=== PATIENT | female | born 1975 | race Hispanic/Latino ===

== ENCOUNTER 2017-12-22 15:57 | Observation (INO) | payer MEDICARE ==
[~2017-12-22] VITALS: Ht 162.6 cm; Wt 127.0 kg
[~2017-12-22 15:57] MED LIST: CALC500T7 PO; LISI-613 PO; SEVE800T7 PO
[2017-12-22 16:25] LABS: BASOPHILS % (AUTO) 1.1 % (0.0-5.0); EOSINOPHILS % (AUTO) 1.2 % (0.0-8.0); HEMATOCRIT 36.6 % (36-48); LYMPHOCYTES % (AUTO) 26.3 % (21.0-51.0); MEAN CORPUSCULAR HEMOGLOBIN 33.8 pg (27.0-33.0); MEAN CORPUSCULAR HGB CONC 32.6 g/dL (32.0-36.0); MEAN CORPUSCULAR VOLUME 103.8 fL (79-99); MONOCYTES % (AUTO) 17.5 % (3.0-13.0); NEUTROPHILS % (AUTO) 53.9 % (40.0-77.0); NUCLEATED RED BLOOD CELLS 0.1 % (0.0-0.19); PLATELET COUNT (AUTO) 117 K/uL (130-400); RED BLOOD CELL COUNT(AUTO) 3.53 MIL/uL (4.00-5.50); RED CELL DISTRIBUTION WIDTH 20.9 % (11.0-15.5); WHITE BLOOD COUNT (AUTO) 3.7 K/uL (4.8-10.8)
[2017-12-22 16:33] LABS: CREATININE 6.5 mg/dL (0.5-1.5); POTASSIUM 3.7 mmol/L (3.5-5.1)
[2017-12-22 16:38] LABS: ALBUMIN 3.2 g/dL (3.5-5.0); BILIRUBIN,DIRECT 1.5 mg/dL (0.0-0.3); BILIRUBIN,TOTAL 2.3 mg/dL (0.2-1.0); TOTAL PROTEIN, SERUM 6.7 g/dL (6.0-8.3)
[2017-12-22] MEDS ORDERED: DICYCLOMINE HCL 10 MG/ML 2ML AMP IM ONE (16:38)
[2017-12-22] MEDS ORDERED: ONDANSETRON HCL 4 MG/2 ML VIAL ONE (16:38)
[2017-12-22] MEDS ORDERED: SODIUM CHLORIDE 0.9% 250 ML IV ONE (16:39)
[2017-12-22] MEDS ORDERED: DILTIAZEM HCL 125 MG/25 ML VIAL IV ONE (19:04)
[2017-12-22] MEDS ORDERED: DILTIAZEM 125MG+100 ML NS 125 ML IV SCH (21:00)
[2017-12-22 21:40] VITALS: BP 114/67
[2017-12-22 23:52] VITALS: BP 110/70
[2017-12-23] MEDS ORDERED: ACETAMINOPHEN-CODEINE 300/30MG TAB ONE (01:49)
[2017-12-23] MEDS ORDERED: DILTIAZEM HCL 125 MG/25 ML VIAL IV ONE (01:58)
[2017-12-23] MEDS: ACETAMINOPHEN-CODEINE 300/30MG TAB PO PRN ×2 (02:21→09:33)
[2017-12-23 03:50] VITALS: BP 129/90
[2017-12-23 07:32] VITALS: BP 101/68
[2017-12-23] MEDS ORDERED: METOPROLOL TARTRATE 25 MG TAB PO SCH (09:00)
[2017-12-23] MEDS ORDERED: LISINOPRIL 20 MG TABLET PO SCH (09:00)
[2017-12-23] MEDS ORDERED: CALCIUM CARBON 500MG CHEW TAB PO SCH (09:00)
[2017-12-23] MEDS ORDERED: APIXABAN 5 MG TABLET PO SCH (09:00)
[2017-12-23 11:44] VITALS: BP 99/66
[2017-12-23] MEDS: SEVELAMER HCL 800 MG TABLET PO SCH ×2 (12:00→16:53)
[2017-12-23] MEDS ORDERED: APIX5TAB PO (14:48)
[2017-12-23] MEDS ORDERED: METO25TA6 PO ×2 (14:49→15:02)
[2017-12-23] MEDS ORDERED: AMOX-426 PO (15:02)
[2017-12-23 16:33] VITALS: BP 91/76
== END 2017-12-23 17:20 | disposition home or self-care (01) ==
LOC: EDH 15:57 → EDHIP 19:31 → INTOOBSV 19:31 → 2AH 20:29
PROVIDERS: ADMIT Family Medicine; ATTEND Family Medicine
DX: R10.819 Abdominal tenderness, unspecified site (principal); N18.6 End stage renal disease; I12.0 Hypertensive chronic kidney disease with stage 5 chronic kidney disease or end stage renal disease; E78.5 Hyperlipidemia, unspecified; I48.2 Chronic atrial fibrillation; I48.92 Unspecified atrial flutter; F41.9 Anxiety disorder, unspecified; Z99.2 Dependence on renal dialysis; Z86.711 Personal history of pulmonary embolism; Z88.1 Allergy status to other antibiotic agents; Z79.899 Other long term (current) drug therapy
CPT/HCPCS: 36415; 74176; 76705; 76830; 76856; 80048; 80076; 82550; 83690; 83880; 84484; 84703; 85025; 93005; 96365; 99291; G0378 ×22; J0500; J2405; J3490 ×2; J7030; 90935

== ENCOUNTER 2018-02-02 07:46 | Inpatient (IN) | payer MEDICARE ==
[2018-02-02] VITALS (15 sets, daily range): BP systolic 89–108; BP diastolic 49–80
[~2018-02-02] VITALS: Ht 162.6 cm; Wt 74.0 kg
[~2018-02-02 07:46] MED LIST changes: +AMOX-426 PO; +APIX5TAB PO; +METO25TA6 PO
[2018-02-02 08:51] LABS: BASOPHILS % (AUTO) 1.1 % (0.0-5.0); EOSINOPHILS % (AUTO) 1.1 % (0.0-8.0); HEMATOCRIT 34.7 % (36-48); MEAN CORPUSCULAR HEMOGLOBIN 33.8 pg (27.0-33.0); MEAN CORPUSCULAR VOLUME 102.4 fL (79-99); MONOCYTES % (AUTO) 7.5 % (3.0-13.0); NEUTROPHILS % (AUTO) 62.3 % (40.0-77.0); NUCLEATED RED BLOOD CELLS 0.5 % (0.0-0.19); PLATELET COUNT (AUTO) 115 K/uL (130-400); RED BLOOD CELL COUNT(AUTO) 3.39 MIL/uL (4.00-5.50); RED CELL DISTRIBUTION WIDTH 19.2 % (11.0-15.5); WHITE BLOOD COUNT (AUTO) 5.7 K/uL (4.8-10.8)
[2018-02-02 09:00] LABS: INR 1.13 (0.85-1.15); PARTIAL THROMBOPLASTIN TIME 26.1 SEC (26.3-35.5); PROTHROMBIN TIME 11.8 SEC (9.6-11.6)
[2018-02-02 09:04] LABS: CREATININE 5.9 mg/dL (0.5-1.5); POTASSIUM 3.8 mmol/L (3.5-5.1)
[2018-02-02 09:06] LABS: ALBUMIN 3.4 g/dL (3.5-5.0); BILIRUBIN,TOTAL 2.4 mg/dL (0.2-1.0); TOTAL PROTEIN, SERUM 7.3 g/dL (6.0-8.3)
[2018-02-02] MEDS ORDERED: DIAZEPAM 5 MG TABLET ONE (09:42)
[2018-02-02] MEDS ORDERED: METOPROLOL TARTRATE 1 MG/ML 5ML VIAL IV ONE ×2 (09:47→10:18)
[2018-02-02] MEDS ORDERED: METOPROLOL TARTRATE 50 MG TAB ONE (11:43)
[2018-02-02] MEDS ORDERED: LORA1TAB3 PO (16:30)
[2018-02-02] MEDS ORDERED: ESMOLOL HCL 2500 MG/NACL 250 ML IV PRN (20:15)
[2018-02-02] MEDS: APIXABAN 5 MG TABLET PO SCH (21:00)
[2018-02-02] MEDS ORDERED: MORPHINE SULFATE 2 MG/ML 1ML SYG IVP PRN (22:00)
[2018-02-02] MEDS ORDERED: METOCLOPRAMIDE 10 MG/2 ML VIAL IVP PRN (22:00)
[2018-02-02] MEDS ORDERED: ONDANSETRON HCL MDV 20ML 2 MG/ML VIAL ONE (22:05)
[2018-02-02 23:18] LABS: HEMATOCRIT 37.1 % (36-48); MEAN CORPUSCULAR HEMOGLOBIN 34.1 pg (27.0-33.0); MEAN CORPUSCULAR HGB CONC 33.1 g/dL (32.0-36.0); NUCLEATED RED BLOOD CELLS 0.9 % (0.0-0.19); PLATELET COUNT (AUTO) 160 K/uL (130-400); RED CELL DISTRIBUTION WIDTH 18.6 % (11.0-15.5); WHITE BLOOD COUNT (AUTO) 8.4 K/uL (4.8-10.8)
[2018-02-02] MEDS ORDERED: ALPRAZOLAM 0.5 MG TABLET ONE (23:29)
[2018-02-02 23:34] LABS: EOSINOPHILS % (MANUAL) 1 % (1-6); LYMPHOCYTES % (MANUAL) 27 % (22-44); MAN.DIFF COMMENT-IMPRESSION MANUAL DIFFERENTIAL; MONOCYTES % (MANUAL) 7 % (2-9); SEGMENTED NEUTROPHILS % 65 % (40-70)
[2018-02-02 23:36] LABS: B-TYPE NATRIURETIC PEPTIDE 651 pg/mL (0-100)
[2018-02-02 23:39] LABS: CREATINE KINASE MB 0.6 ng/mL (0.5-3.6); TROPONIN I 0.06 ng/mL (0.00-0.06)
[2018-02-03] VITALS (30 sets, daily range): BP systolic 73–138; BP diastolic 33–81
[2018-02-03 02:12] LABS: HEMATOCRIT 37.6 % (36-48); MEAN CORPUSCULAR HGB CONC 32.8 g/dL (32.0-36.0); MEAN CORPUSCULAR VOLUME 103.6 fL (79-99); NUCLEATED RED BLOOD CELLS 0.8 % (0.0-0.19); PLATELET COUNT (AUTO) 152 K/uL (130-400); RED BLOOD CELL COUNT(AUTO) 3.63 MIL/uL (4.00-5.50); RED CELL DISTRIBUTION WIDTH 19.2 % (11.0-15.5); WHITE BLOOD COUNT (AUTO) 8.5 K/uL (4.8-10.8)
[2018-02-03] MEDS ORDERED: ESMOLOL HCL 2500 MG/NACL 250 ML IV ONE (02:30)
[2018-02-03 02:31] LABS: CREATINE KINASE MB 0.6 ng/mL (0.5-3.6); CREATININE 6.5 mg/dL (0.5-1.5); POTASSIUM 5.2 mmol/L (3.5-5.1); TROPONIN I 0.05 ng/mL (0.00-0.06)
[2018-02-03 02:37] LABS: BAND NEUTROPHILS % (MANUAL) 2 % (0-2); EOSINOPHILS % (MANUAL) 1 % (1-6); LYMPHOCYTES % (MANUAL) 26 % (22-44); MAN.DIFF COMMENT-IMPRESSION MANUAL DIFFERENTIAL; MONOCYTES % (MANUAL) 5 % (2-9); SEGMENTED NEUTROPHILS % 66 % (40-70)
[2018-02-03 02:38] LABS: PLATELET MORPHOLOGY COMMENT ADEQUATE
[2018-02-03] MEDS ORDERED: LORAZEPAM 1 MG TABLET ONE ×2 (03:32→08:12)
[2018-02-03] MEDS ORDERED: LORAZEPAM 1 MG TABLET PO ONE (04:00)
[2018-02-03] MEDS: MORPHINE SULFATE 2 MG/ML 1ML SYG IVP PRN ×3 (06:55→07:25)
[2018-02-03] MEDS ORDERED: ACETAMINOPHEN 325 MG TAB ONE (08:12)
[2018-02-03] MEDS: APIXABAN 5 MG TABLET PO SCH ×2 (09:00→21:33)
[2018-02-03] MEDS ORDERED: AMIODARONE HCL 900 MG in DEXTROSE 5%-WATER 500 ML IV SCH (09:15)
[2018-02-03] MEDS ORDERED: PHARMACY COMMUNICATION MISC SCH (09:15)
[2018-02-03] MEDS ORDERED: AMIODARONE HCL 150 MG in DEXTROSE 5%-WATER 100 ML IV SCH (09:15)
[2018-02-03] MEDS ORDERED: SODIUM CHLORIDE 0.9% 10 ML VIAL IVP PRN (15:45)
[2018-02-03] MEDS ORDERED: SODIUM CHLORIDE 0.9% 1000ML 1,000 ML IV ONE (17:03)
[2018-02-03] MEDS: LORAZEPAM 1 MG TABLET PO PRN ×2 (17:10→22:54)
[2018-02-03] MEDS: NOREPINEPHRINE 4MG/NS 250ML 250 ML IV PRN ×2 (18:27→23:57)
[2018-02-03] MEDS ORDERED: LORAZEPAM 1 MG TABLET PO STA (22:47)
[2018-02-04] VITALS (24 sets, daily range): BP systolic 91–143; BP diastolic 32–112
[2018-02-04] MEDS: ONDANSETRON HCL MDV 20ML 2 MG/ML VIAL IVP PRN (02:59)
[2018-02-04] MEDS: MORPHINE SULFATE 2 MG/ML 1ML SYG IVP PRN (02:59)
[2018-02-04 04:00] LABS: HEMATOCRIT 40.1 % (36-48); MEAN CORPUSCULAR HEMOGLOBIN 33.8 pg (27.0-33.0); MEAN CORPUSCULAR HGB CONC 32.4 g/dL (32.0-36.0); MEAN CORPUSCULAR VOLUME 104.3 fL (79-99); NUCLEATED RED BLOOD CELLS 1.8 % (0.0-0.19); PLATELET COUNT (AUTO) 173 K/uL (130-400); RED BLOOD CELL COUNT(AUTO) 3.84 MIL/uL (4.00-5.50); RED CELL DISTRIBUTION WIDTH 19.6 % (11.0-15.5); WHITE BLOOD COUNT (AUTO) 12.2 K/uL (4.8-10.8)
[2018-02-04 04:12] LABS: CREATININE 7.6 mg/dL (0.5-1.5); POTASSIUM 5.7 mmol/L (3.5-5.1)
[2018-02-04 04:26] LABS: INR 1.7 (0.85-1.15); PARTIAL THROMBOPLASTIN TIME 30.9 SEC (26.3-35.5); PROTHROMBIN TIME 17.7 SEC (9.6-11.6)
[2018-02-04 05:10] LABS: BAND NEUTROPHILS % (MANUAL) 8 % (0-2); BASOPHILS % (MANUAL) 2 % (0-2); LYMPHOCYTES % (MANUAL) 19 % (22-44); MAN.DIFF COMMENT-IMPRESSION MANUAL DIFFERENTIAL; MONOCYTES % (MANUAL) 1 % (2-9); PLATELET MORPHOLOGY COMMENT ADEQUATE; SEGMENTED NEUTROPHILS % 70 % (40-70)
[2018-02-04] MEDS: NOREPINEPHRINE 4MG/NS 250ML 250 ML IV PRN ×2 (06:46→19:51)
[2018-02-04] MEDS: APIXABAN 5 MG TABLET PO SCH ×2 (09:00→20:33)
[2018-02-04] MEDS ORDERED: LIDOCAINE HCL 1% MDV 50ML VIAL ONE (10:07)
[2018-02-04] MEDS ORDERED: MIDODRINE HCL 5 MG TABLET ONE (11:08)
[2018-02-04] MEDS: AMIODARONE HCL 200 MG TABLET PO SCH ×2 (11:16→20:27)
[2018-02-04] MEDS: MIDODRINE HCL 5 MG TABLET PO SCH ×2 (11:18→20:27)
[2018-02-04] MEDS: LORAZEPAM 1 MG TABLET PO PRN (12:29)
[2018-02-04] MEDS ORDERED: SODIUM CHLORIDE 0.9% 1000ML 1,000 ML IV SCH (14:45)
[2018-02-04] MEDS ORDERED: SODIUM CHLORIDE 0.9% 1000ML 1,000 ML IV PRN (18:30)
[2018-02-04] MEDS ORDERED: PHARMACY COMMUNICATION MISC SCH (18:30)
[2018-02-05] VITALS (12 sets, daily range): BP systolic 87–131; BP diastolic 41–78
[2018-02-05] MEDS: LORAZEPAM 1 MG TABLET PO PRN ×2 (00:32→21:38)
[2018-02-05] MEDS: ONDANSETRON HCL MDV 20ML 2 MG/ML VIAL IVP PRN (02:59)
[2018-02-05] MEDS: MORPHINE SULFATE 2 MG/ML 1ML SYG IVP PRN ×4 (02:59→21:39)
[2018-02-05 03:57] LABS: HEMATOCRIT 35.3 % (36-48); MEAN CORPUSCULAR HEMOGLOBIN 35.4 pg (27.0-33.0); MEAN CORPUSCULAR HGB CONC 34.2 g/dL (32.0-36.0); MEAN CORPUSCULAR VOLUME 103.7 fL (79-99); NUCLEATED RED BLOOD CELLS 3.3 % (0.0-0.19); PLATELET COUNT (AUTO) 138 K/uL (130-400); RED BLOOD CELL COUNT(AUTO) 3.41 MIL/uL (4.00-5.50); RED CELL DISTRIBUTION WIDTH 19.4 % (11.0-15.5); WHITE BLOOD COUNT (AUTO) 7.7 K/uL (4.8-10.8)
[2018-02-05 04:04] LABS: CREATININE 6.4 mg/dL (0.5-1.5); POTASSIUM 4.7 mmol/L (3.5-5.1)
[2018-02-05 04:45] LABS: BAND NEUTROPHILS % (MANUAL) 4 % (0-2); LYMPHOCYTES % (MANUAL) 20 % (22-44); MAN.DIFF COMMENT-IMPRESSION MANUAL DIFFERENTIAL; MONOCYTES % (MANUAL) 4 % (2-9); PLATELET MORPHOLOGY COMMENT ADEQUATE; SEGMENTED NEUTROPHILS % 72 % (40-70)
[2018-02-05] MEDS: MIDODRINE HCL 5 MG TABLET PO SCH ×3 (04:45→21:38)
[2018-02-05] MEDS: HEPARIN SODIUM 5000UNIT/ML 1ML VIAL IJ PRN (05:41)
[2018-02-05] MEDS: AMIODARONE HCL 200 MG TABLET PO SCH ×2 (09:57→21:38)
[2018-02-06] VITALS (11 sets, daily range): BP systolic 83–129; BP diastolic 61–95
[2018-02-06] MEDS: ACETAMINOPHEN 325 MG TAB PO PRN (01:24)
[2018-02-06] MEDS: MIDODRINE HCL 5 MG TABLET PO SCH ×3 (04:05→20:07)
[2018-02-06 04:06] LABS: HEMATOCRIT 33.4 % (36-48); MEAN CORPUSCULAR HEMOGLOBIN 34.1 pg (27.0-33.0); MEAN CORPUSCULAR HGB CONC 32.6 g/dL (32.0-36.0); MEAN CORPUSCULAR VOLUME 104.5 fL (79-99); NUCLEATED RED BLOOD CELLS 2.3 % (0.0-0.19); PLATELET COUNT (AUTO) 136 K/uL (130-400); RED CELL DISTRIBUTION WIDTH 19.9 % (11.0-15.5); WHITE BLOOD COUNT (AUTO) 6.2 K/uL (4.8-10.8)
[2018-02-06] MEDS: MORPHINE SULFATE 2 MG/ML 1ML SYG IVP PRN ×3 (04:09→23:32)
[2018-02-06 04:10] LABS: CREATININE 7.5 mg/dL (0.5-1.5); POTASSIUM 4.6 mmol/L (3.5-5.1)
[2018-02-06 04:20] LABS: BASOPHILS % (MANUAL) 1 % (0-2); LYMPHOCYTES % (MANUAL) 28 % (22-44); MONOCYTES % (MANUAL) 13 % (2-9); SEGMENTED NEUTROPHILS % 58 % (40-70)
[2018-02-06 04:21] LABS: MAN.DIFF COMMENT-IMPRESSION MANUAL DIFFERENTIAL; PLATELET MORPHOLOGY COMMENT SLIGHTLY DECREASED
[2018-02-06 09:03] LABS: INR 1.36 (0.85-1.15); PARTIAL THROMBOPLASTIN TIME 28.2 SEC (26.3-35.5); PROTHROMBIN TIME 14.2 SEC (9.6-11.6)
[2018-02-06] MEDS ORDERED: LIDOCAINE HCL 1% MDV 50ML VIAL ONE (11:22)
[2018-02-06] MEDS ORDERED: ALTEPLASE 2 MG/2 ML IVCATH ONE (11:23)
[2018-02-06] MEDS ORDERED: ISOVUE-300 100 ML VIAL IV ONE (11:46)
[2018-02-06] MEDS ORDERED: DiphenhydrAMINE HCL 50 MG/ML VIAL ONE (11:58)
[2018-02-06] MEDS: AMIODARONE HCL 200 MG TABLET PO SCH ×2 (13:17→23:32)
[2018-02-06] MEDS ORDERED: APIXABAN 5 MG TABLET PO ONE (23:25)
[2018-02-06] MEDS: HEPARIN SODIUM 5000UNIT/ML 1ML VIAL IJ PRN (23:31)
[2018-02-06] MEDS: LORAZEPAM 1 MG TABLET PO PRN (23:32)
[2018-02-06] MEDS ORDERED: MIDAZOLAM HCL 1 MG/ML 2ML VIAL IVP SCH (23:45)
[2018-02-07 03:48] VITALS: BP 109/65
[2018-02-07] MEDS: MIDODRINE HCL 5 MG TABLET PO SCH ×3 (05:23→21:07)
[2018-02-07 05:37] LABS: HEMATOCRIT 34.5 % (36-48); MEAN CORPUSCULAR HEMOGLOBIN 35.5 pg (27.0-33.0); MEAN CORPUSCULAR HGB CONC 33.9 g/dL (32.0-36.0); MEAN CORPUSCULAR VOLUME 104.6 fL (79-99); NUCLEATED RED BLOOD CELLS 2.2 % (0.0-0.19); PLATELET COUNT (AUTO) 144 K/uL (130-400); RED CELL DISTRIBUTION WIDTH 19.6 % (11.0-15.5); WHITE BLOOD COUNT (AUTO) 6.3 K/uL (4.8-10.8)
[2018-02-07 05:45] LABS: CREATININE 6.5 mg/dL (0.5-1.5); POTASSIUM 4.5 mmol/L (3.5-5.1)
[2018-02-07] MEDS ORDERED: FENTANYL CITRATE PF 50 MCG/1 ML 2ML VIAL IVP ONE (07:30)
[2018-02-07] MEDS ORDERED: BENZOCAINE 20% 57 GM SPRAY TP SCH (07:30)
[2018-02-07 08:05] LABS: EOSINOPHILS % (MANUAL) 3 % (1-6); LYMPHOCYTES % (MANUAL) 31 % (22-44); MONOCYTES % (MANUAL) 5 % (2-9); MYELOCYTES % 1 % (0-0); SEGMENTED NEUTROPHILS % 60 % (40-70)
[2018-02-07 08:07] LABS: MAN.DIFF COMMENT-IMPRESSION MANUAL DIFFERENTIAL
[2018-02-07 08:08] LABS: PLATELET MORPHOLOGY COMMENT ADEQUATE
[2018-02-07] MEDS ORDERED: NOREPINEPHRINE 4MG/NS 250ML 250 ML IV SCH (10:15)
[2018-02-07] MEDS ORDERED: NOREPINEPHRINE BITARTRATE 1 MG/1 ML ML IV ONE (10:16)
[2018-02-07] MEDS ORDERED: SODIUM CHLORIDE 0.9% 250 ML IV ONE (10:16)
[2018-02-07] MEDS: MIDAZOLAM HCL 1 MG/ML 2ML VIAL IVP SCH ×4 (10:30→10:45)
[2018-02-07] MEDS ORDERED: FLUMAZENIL 0.1MG/1ML 5ML VIAL IV SCH (11:15)
[2018-02-07] MEDS: APIXABAN 5 MG TABLET PO SCH ×2 (13:58→21:07)
[2018-02-07] MEDS: AMIODARONE HCL 200 MG TABLET PO SCH ×2 (13:59→21:07)
[2018-02-07 16:20] VITALS: BP 140/93
[2018-02-07] MEDS: LORAZEPAM 1 MG TABLET PO PRN (19:13)
[2018-02-07] MEDS: MORPHINE SULFATE 2 MG/ML 1ML SYG IVP PRN (19:13)
[2018-02-07 19:49] VITALS: BP 113/57
[2018-02-07 23:26] VITALS: BP 91/51
[2018-02-08] MEDS: MORPHINE SULFATE 2 MG/ML 1ML SYG IVP PRN ×3 (02:22→23:28)
[2018-02-08 03:42] VITALS: BP 106/66
[2018-02-08 04:27] LABS: HEMATOCRIT 37.8 % (36-48); MEAN CORPUSCULAR HEMOGLOBIN 34.6 pg (27.0-33.0); MEAN CORPUSCULAR HGB CONC 32.3 g/dL (32.0-36.0); MEAN CORPUSCULAR VOLUME 107.2 fL (79-99); NUCLEATED RED BLOOD CELLS 1.4 % (0.0-0.19); PLATELET COUNT (AUTO) 133 K/uL (130-400); RED BLOOD CELL COUNT(AUTO) 3.52 MIL/uL (4.00-5.50); RED CELL DISTRIBUTION WIDTH 20.9 % (11.0-15.5); WHITE BLOOD COUNT (AUTO) 6.7 K/uL (4.8-10.8)
[2018-02-08 04:49] LABS: CREATININE 7.7 mg/dL (0.5-1.5)
[2018-02-08] MEDS: MIDODRINE HCL 5 MG TABLET PO SCH ×3 (05:08→20:23)
[2018-02-08] MEDS: MIDAZOLAM HCL 1 MG/ML 2ML VIAL IVP SCH (07:36)
[2018-02-08 07:41] VITALS: BP 110/66
[2018-02-08] MEDS: ONDANSETRON HCL MDV 20ML 2 MG/ML VIAL IVP PRN (08:59)
[2018-02-08] MEDS: AMIODARONE HCL 200 MG TABLET PO SCH ×2 (09:38→20:22)
[2018-02-08] MEDS: APIXABAN 5 MG TABLET PO SCH ×2 (09:39→20:23)
[2018-02-08 11:20] VITALS: BP 134/88
[2018-02-08 16:23] VITALS: BP 124/63
[2018-02-08] MEDS: ACETAMINOPHEN 325 MG TAB PO PRN (16:30)
[2018-02-08] MEDS: LORAZEPAM 1 MG TABLET PO PRN (17:53)
[2018-02-08 19:00] VITALS: BP 154/101
[2018-02-09] VITALS: BP 107/68
[2018-02-09] MEDS: LORAZEPAM 1 MG TABLET PO PRN (03:40)
[2018-02-09 04:00] VITALS: BP 117/69
[2018-02-09 04:31] LABS: HEMATOCRIT 37.2 % (36-48); MEAN CORPUSCULAR HEMOGLOBIN 34.7 pg (27.0-33.0); MEAN CORPUSCULAR VOLUME 105.2 fL (79-99); NUCLEATED RED BLOOD CELLS 1.5 % (0.0-0.19); PLATELET COUNT (AUTO) 130 K/uL (130-400); RED BLOOD CELL COUNT(AUTO) 3.54 MIL/uL (4.00-5.50); RED CELL DISTRIBUTION WIDTH 20.9 % (11.0-15.5); WHITE BLOOD COUNT (AUTO) 5.5 K/uL (4.8-10.8)
[2018-02-09 04:46] LABS: CREATININE 6.3 mg/dL (0.5-1.5); POTASSIUM 4.7 mmol/L (3.5-5.1)
[2018-02-09] MEDS: MIDODRINE HCL 5 MG TABLET PO SCH ×2 (05:27→13:28)
[2018-02-09] MEDS: MORPHINE SULFATE 2 MG/ML 1ML SYG IVP PRN (06:23)
[2018-02-09 07:56] VITALS: BP 151/96
[2018-02-09] MEDS: AMIODARONE HCL 200 MG TABLET PO SCH (09:15)
[2018-02-09] MEDS: APIXABAN 5 MG TABLET PO SCH (09:15)
[2018-02-09] MEDS ORDERED: POLYETHYLENE GLYCOL 3350 17 GM POWD.PACK PO SCH (11:00)
[2018-02-09 11:22] VITALS: BP 148/59
[2018-02-09] MEDS: ACETAMINOPHEN 325 MG TAB PO PRN (14:17)
[2018-02-09] MEDS ORDERED: AMIO200T44 PO (14:20)
[2018-02-09 16:26] VITALS: BP 134/75
[2018-02-09] MEDS ORDERED: AMIODARONE HCL 200 MG TABLET PO SCH (21:00)
== END 2018-02-09 18:41 | disposition home or self-care (01) | DRG 314 ==
LOC: EDH 07:46 → EDHIP 07:47 → UNDOADMOB 07:47 → EDHIP 10:54 → OBSVTOIN 10:54 → 2DH 15:58 → 2BH 20:05 → 2CH 02-03 19:54 → 2BH 02-03 20:55 → 2AH 02-05 13:39 → 2BH 02-07 07:10 → 2AH 02-07 16:05
PROVIDERS: ADMIT Family Medicine; ATTEND Family Medicine
PROC: 5A1D70Z Performance of Urinary Filtration, Intermittent, Less than 6 Hours Per Day (ICD-10-PCS; principal; 2018-02-04)
PROC: 05HM33Z Insertion of Infusion Device into Right Internal Jugular Vein, Percutaneous Approach (ICD-10-PCS; 2018-02-04)
PROC: B5131ZA Fluoroscopy of Right Jugular Veins using Low Osmolar Contrast, Guidance (ICD-10-PCS; 2018-02-04)
PROC: B51W1ZZ Fluoroscopy of Dialysis Shunt/Fistula using Low Osmolar Contrast (ICD-10-PCS; 2018-02-06)
PROC: 5A1D70Z Performance of Urinary Filtration, Intermittent, Less than 6 Hours Per Day (ICD-10-PCS; 2018-02-08)
PROC: 5A2204Z Restoration of Cardiac Rhythm, Single (ICD-10-PCS; 2018-02-08)
DX: T82.818A Embolism due to vascular prosthetic devices, implants and grafts, initial encounter (principal); A41.9 Sepsis, unspecified organism; E11.21 Type 2 diabetes mellitus with diabetic nephropathy; M32.9 Systemic lupus erythematosus, unspecified; E11.22 Type 2 diabetes mellitus with diabetic chronic kidney disease; N18.6 End stage renal disease; I12.0 Hypertensive chronic kidney disease with stage 5 chronic kidney disease or end stage renal disease; E66.01 Morbid (severe) obesity due to excess calories; I48.91 Unspecified atrial fibrillation; E87.5 Hyperkalemia; I08.1 Rheumatic disorders of both mitral and tricuspid valves; D63.1 Anemia in chronic kidney disease; Y83.2 Surgical operation with anastomosis, bypass or graft as the cause of abnormal reaction of the patient, or of later complication, without mention of misadventure at the time of the procedure; Z53.20 Procedure and treatment not carried out because of patient's decision for unspecified reasons; Y84.1 Kidney dialysis as the cause of abnormal reaction of the patient, or of later complication, without mention of misadventure at the time of the procedure; Z83.3 Family history of diabetes mellitus; Z82.49 Family history of ischemic heart disease and other diseases of the circulatory system; Z79.01 Long term (current) use of anticoagulants; Z91.14 Patient's other noncompliance with medication regimen; Z99.2 Dependence on renal dialysis; Z88.1 Allergy status to other antibiotic agents; Z88.8 Allergy status to other drugs, medicaments and biological substances; Z79.4 Long term (current) use of insulin; Z68.28 Body mass index [BMI] 28.0-28.9, adult
CPT/HCPCS: 36415; 36556; 36902; 71045; 77001; 80048; 80053; 82550; 82553; 83874; 83880; 84484; 85025; 85027; 85610; 85730; 86850; 86900; 86901; 90935; 92960; 93005; 93306; 93312; 99291; C1752; C1769; C1894; J0282; J1200; J1644; J2250; J2997; J3010; J3490; J7030; J7060; Q9967

== ENCOUNTER 2018-02-20 09:19 | Inpatient (IN) | payer MEDICARE ==
[~2018-02-20] VITALS: Ht 162.6 cm; Wt 114.8 kg
[~2018-02-20 09:19] MED LIST changes: +AMIO200T44 PO; -AMOX-426 PO; -CALC500T7 PO; -LISI-613 PO; +LORA1TAB3 PO
[2018-02-20 10:02] LABS: BASOPHILS % (AUTO) 1.2 % (0.0-5.0); EOSINOPHILS % (AUTO) 0.9 % (0.0-8.0); HEMATOCRIT 36.1 % (36-48); LYMPHOCYTES % (AUTO) 31.9 % (21.0-51.0); MEAN CORPUSCULAR HEMOGLOBIN 33.4 pg (27.0-33.0); MEAN CORPUSCULAR HGB CONC 32.8 g/dL (32.0-36.0); MEAN CORPUSCULAR VOLUME 101.9 fL (79-99); MONOCYTES % (AUTO) 16.4 % (3.0-13.0); NEUTROPHILS % (AUTO) 49.6 % (40.0-77.0); NUCLEATED RED BLOOD CELLS 0.2 % (0.0-0.19); PLATELET COUNT (AUTO) 192 K/uL (130-400); RED BLOOD CELL COUNT(AUTO) 3.54 MIL/uL (4.00-5.50); RED CELL DISTRIBUTION WIDTH 17.9 % (11.0-15.5)
[2018-02-20 10:19] LABS: INR 1.21 (0.85-1.15); PARTIAL THROMBOPLASTIN TIME 24.7 SEC (26.3-35.5); PROTHROMBIN TIME 12.7 SEC (9.6-11.6)
[2018-02-20 10:41] LABS: CREATININE 7.6 mg/dL (0.5-1.5); POTASSIUM 4.4 mmol/L (3.5-5.1)
[2018-02-20] MEDS ORDERED: LORAZEPAM 1 MG TABLET ONE (12:03)
[2018-02-20 14:16] VITALS: BP 115/77
[2018-02-20] MEDS ORDERED: IPRATROPIUM/ALBUTEROL SULFATE 3 ML SOLUTION IH PRN (14:30)
[2018-02-20] MEDS ORDERED: NITROGLYCERIN 0.4 MG SL TAB SL PRN (14:30)
[2018-02-20] MEDS ORDERED: ZOLPIDEM TARTRATE 5 MG TAB PO PRN (14:30)
[2018-02-20] MEDS ORDERED: GLUCAGON 1MG KIT 1 MG ML IM PRN (14:30)
[2018-02-20] MEDS ORDERED: ACETAMINOPHEN 325 MG TAB PO PRN ×2 (14:30)
[2018-02-20] MEDS ORDERED: POTASSIUM CHLORIDE 20MEQ/100ML 100 ML IV PRN (14:30)
[2018-02-20] MEDS ORDERED: DIPHENHYDRAMINE HCL 25 MG CAPSULE PO PRN (14:30)
[2018-02-20] MEDS ORDERED: ONDANSETRON HCL 4 MG/2 ML VIAL IVP PRN (14:30)
[2018-02-20] MEDS ORDERED: DEXTROSE 50%-WATER 50 ML DISP.SYRIN IV PRN (14:30)
[2018-02-20] MEDS ORDERED: POTASSIUM CHLORIDE 20 MEQ ERTAB PO PRN (14:30)
[2018-02-20] MEDS ORDERED: MAG HYDROX/AL HYDROX/SIMETH ES 30 ML SUSP UDCUP PO PRN (14:30)
[2018-02-20] MEDS ORDERED: LIDOCAINE HCL-MPF 1% 2ML VIAL IJ PRN (14:30)
[2018-02-20] MEDS ORDERED: DiphenhydrAMINE HCL 50 MG/ML VIAL IVP PRN (14:30)
[2018-02-20] MEDS ORDERED: LACTULOSE 20 GM/30 ML UDCUP PO PRN (14:30)
[2018-02-20] MEDS ORDERED: GUAIFENESIN-DM 200/20 MG 10 ML PO PRN (14:30)
[2018-02-20] MEDS ORDERED: CLONIDINE HCL 0.1 MG TABLET PO PRN (14:30)
[2018-02-20] MEDS ORDERED: POTASSIUM CHLORIDE 10% ELIXIR 20 MEQ/15 ML UDCUP PO PRN (14:30)
[2018-02-20] MEDS ORDERED: INSULIN R PO SSI SQ SCH (16:30)
[2018-02-20 17:12] VITALS: BP 106/60
[2018-02-20] MEDS: SEVELAMER HCL 800 MG TABLET PO SCH (17:48)
[2018-02-20 19:00] VITALS: BP 108/77
[2018-02-20] MEDS: LORAZEPAM 1 MG TABLET PO PRN (20:32)
[2018-02-20] MEDS: AMIODARONE HCL 200 MG TABLET PO SCH (20:32)
[2018-02-20] MEDS: METOPROLOL TARTRATE 25 MG TAB PO SCH (20:32)
[2018-02-20] MEDS ORDERED: FAMOTIDINE 20MG TAB 20 MG TAB PO SCH (21:00)
[2018-02-20 23:00] VITALS: BP 108/73
[2018-02-21] VITALS (12 sets, daily range): BP systolic 92–124; BP diastolic 17–87
[2018-02-21 04:40] LABS: BASOPHILS % (AUTO) 1.3 % (0.0-5.0); LYMPHOCYTES % (AUTO) 28.9 % (21.0-51.0); MEAN CORPUSCULAR HGB CONC 34.5 g/dL (32.0-36.0); MEAN CORPUSCULAR VOLUME 101.5 fL (79-99); MONOCYTES % (AUTO) 15.5 % (3.0-13.0); NEUTROPHILS % (AUTO) 53.3 % (40.0-77.0); NUCLEATED RED BLOOD CELLS 0.1 % (0.0-0.19); PLATELET COUNT (AUTO) 137 K/uL (130-400); RED BLOOD CELL COUNT(AUTO) 3.35 MIL/uL (4.00-5.50); RED CELL DISTRIBUTION WIDTH 17.5 % (11.0-15.5)
[2018-02-21 04:48] LABS: POTASSIUM 4.7 mmol/L (3.5-5.1)
[2018-02-21 05:07] LABS: CREATININE 8.3 mg/dL (0.5-1.5)
[2018-02-21] MEDS: SEVELAMER HCL 800 MG TABLET PO SCH ×3 (08:00→17:00)
[2018-02-21] MEDS: AMIODARONE HCL 200 MG TABLET PO SCH ×2 (08:45→21:15)
[2018-02-21] MEDS: METOPROLOL TARTRATE 25 MG TAB PO SCH ×2 (08:45→21:15)
[2018-02-21] MEDS ORDERED: LIDOCAINE HCL 1% MDV 50ML VIAL ONE (08:55)
[2018-02-21] MEDS ORDERED: HYDRALAZINE HCL 20 MG/ML VIAL IV PRN (12:00)
[2018-02-21] MEDS ORDERED: ONDANSETRON HCL 4 MG/2 ML VIAL IV PRN (12:00)
[2018-02-21] MEDS ORDERED: MORPHINE SULFATE 2 MG/ML 1ML SYG IV PRN (12:00)
[2018-02-21] MEDS ORDERED: ACETAMINOPHEN 325 MG TAB PO PRN ×2 (12:00→13:15)
[2018-02-21] MEDS ORDERED: LACTULOSE 20 GM/30 ML UDCUP PO PRN (12:00)
[2018-02-21] MEDS ORDERED: ONDANSETRON HCL MDV 20ML 2 MG/ML VIAL IV PRN (12:03)
[2018-02-21] MEDS: ACETAMINOPHEN-CODEINE 300/30MG TAB PO PRN (13:23)
[2018-02-21] MEDS: PROMETHAZINE HCL 25 MG/ML 1ML AMPULE IM PRN (17:54)
[2018-02-21] MEDS: LORAZEPAM 1 MG TABLET PO PRN (21:15)
[2018-02-22] VITALS (20 sets, daily range): BP systolic 97–143; BP diastolic 51–98
[2018-02-22] MEDS: PROMETHAZINE HCL 25 MG/ML 1ML AMPULE IM PRN (01:38)
[2018-02-22 03:40] LABS: HEMATOCRIT 36.1 % (36-48); MEAN CORPUSCULAR HEMOGLOBIN 33.3 pg (27.0-33.0); MEAN CORPUSCULAR HGB CONC 32.7 g/dL (32.0-36.0); MEAN CORPUSCULAR VOLUME 101.9 fL (79-99); NUCLEATED RED BLOOD CELLS 0.5 % (0.0-0.19); PLATELET COUNT (AUTO) 135 K/uL (130-400); RED BLOOD CELL COUNT(AUTO) 3.55 MIL/uL (4.00-5.50); RED CELL DISTRIBUTION WIDTH 17.9 % (11.0-15.5)
[2018-02-22 03:48] LABS: POTASSIUM 4.9 mmol/L (3.5-5.1)
[2018-02-22 03:57] LABS: CREATININE 9.6 mg/dL (0.5-1.5)
[2018-02-22] MEDS ORDERED: SODIUM CHLORIDE 0.9% 1000ML 1,000 ML IV ONE ×2 (05:58→08:56)
[2018-02-22] MEDS: SEVELAMER HCL 800 MG TABLET PO SCH ×3 (08:00→17:38)
[2018-02-22] MEDS: METOPROLOL TARTRATE 25 MG TAB PO SCH (08:42)
[2018-02-22] MEDS: AMIODARONE HCL 200 MG TABLET PO SCH (08:42)
[2018-02-22] MEDS: PANTOPRAZOLE SODIUM 40 MG TABLET.DR PO SCH (08:42)
[2018-02-22] MEDS ORDERED: FENTANYL CITRATE PF 50 MCG/1 ML 2ML VIAL ONE (10:08)
[2018-02-22] MEDS ORDERED: EPHEDRINE SULFATE 50 MG/ML AMPULE ONE (10:17)
[2018-02-22] MEDS ORDERED: PAPAVERINE HCL 30 MG/ML 2ML VIAL ONE (10:22)
[2018-02-22] MEDS ORDERED: OCTYL 2-CYANOACRYLATE 1 EACH TP ONE (10:22)
[2018-02-22] MEDS ORDERED: NEOMY SULF/POLYMYXIN B SULFATE 1 ML AMPUL IR ONE (10:23)
[2018-02-22] MEDS ORDERED: MEPERIDINE-PF 25 MG/ML SYG ONE (11:48)
[2018-02-22] MEDS ORDERED: MORPHINE SULFATE 4 MG/1ML SYG ONE (14:27)
[2018-02-22] MEDS ORDERED: MORPHINE SULFATE 4 MG/1ML SYG IV PRN (14:40)
[2018-02-22] MEDS: TRAMADOL HCL 50 MG TABLET PO PRN (20:52)
[2018-02-22] MEDS: LORAZEPAM 1 MG TABLET PO PRN (22:34)
[2018-02-23] VITALS: BP 157/87
[2018-02-23] MEDS: AMIODARONE HCL 200 MG TABLET PO SCH ×3 (00:54→20:31)
[2018-02-23] MEDS: METOPROLOL TARTRATE 25 MG TAB PO SCH ×3 (00:54→20:31)
[2018-02-23] MEDS: ACETAMINOPHEN-CODEINE 300/30MG TAB PO PRN (01:00)
[2018-02-23 03:52] VITALS: BP 156/94
[2018-02-23] MEDS: TRAMADOL HCL 50 MG TABLET PO PRN ×3 (04:19→17:21)
[2018-02-23 08:00] VITALS: BP 132/75
[2018-02-23] MEDS: SEVELAMER HCL 800 MG TABLET PO SCH ×3 (08:04→17:21)
[2018-02-23] MEDS: PANTOPRAZOLE SODIUM 40 MG TABLET.DR PO SCH (08:04)
[2018-02-23 11:36] VITALS: BP 155/96
[2018-02-23] MEDS: PROMETHAZINE HCL 25 MG/ML 1ML AMPULE IM PRN ×2 (14:25→20:31)
[2018-02-23 16:00] VITALS: BP 140/91
[2018-02-23 20:00] VITALS: BP 137/89
[2018-02-23] MEDS: LORAZEPAM 1 MG TABLET PO PRN (23:25)
[2018-02-24] VITALS (7 sets, daily range): BP systolic 124–150; BP diastolic 62–89
[2018-02-24] MEDS: TRAMADOL HCL 50 MG TABLET PO PRN ×3 (02:33→20:32)
[2018-02-24] MEDS: SEVELAMER HCL 800 MG TABLET PO SCH ×3 (08:00→17:11)
[2018-02-24] MEDS: PANTOPRAZOLE SODIUM 40 MG TABLET.DR PO SCH (09:39)
[2018-02-24] MEDS: PROMETHAZINE HCL 25 MG/ML 1ML AMPULE IM PRN (09:46)
[2018-02-24] MEDS: AMIODARONE HCL 200 MG TABLET PO SCH ×2 (10:30→20:27)
[2018-02-24] MEDS: METOPROLOL TARTRATE 25 MG TAB PO SCH ×2 (10:30→20:27)
[2018-02-24] MEDS: METOCLOPRAMIDE 10 MG TABLET PO SCH ×3 (13:02→20:27)
[2018-02-24] MEDS: LORAZEPAM 1 MG TABLET PO PRN ×2 (15:12→23:02)
[2018-02-24] MEDS ORDERED: IOPAMIDOL-370 100 ML VIAL IV ONE (15:27)
[2018-02-24] MEDS: INSULIN HUMULIN R 100 UNIT/ML 3ML SQ SCH (21:00)
[2018-02-25 03:46] VITALS: BP 116/77
[2018-02-25 04:52] LABS: BASOPHILS % (AUTO) 1.5 % (0.0-5.0); EOSINOPHILS % (AUTO) 1.5 % (0.0-8.0); HEMATOCRIT 31.9 % (36-48); MEAN CORPUSCULAR HEMOGLOBIN 34.9 pg (27.0-33.0); MEAN CORPUSCULAR HGB CONC 34.1 g/dL (32.0-36.0); MEAN CORPUSCULAR VOLUME 102.4 fL (79-99); MONOCYTES % (AUTO) 13.7 % (3.0-13.0); NEUTROPHILS % (AUTO) 59.3 % (40.0-77.0); NUCLEATED RED BLOOD CELLS 0.3 % (0.0-0.19); PLATELET COUNT (AUTO) 98 K/uL (130-400); RED BLOOD CELL COUNT(AUTO) 3.12 MIL/uL (4.00-5.50); RED CELL DISTRIBUTION WIDTH 18.1 % (11.0-15.5); WHITE BLOOD COUNT (AUTO) 3.7 K/uL (4.8-10.8)
[2018-02-25 05:15] LABS: CREATININE 7.5 mg/dL (0.5-1.5); POTASSIUM 4.3 mmol/L (3.5-5.1)
[2018-02-25] MEDS: METOCLOPRAMIDE 10 MG TABLET PO SCH ×3 (06:44→17:34)
[2018-02-25] MEDS: INSULIN HUMULIN R 100 UNIT/ML 3ML SQ SCH ×3 (06:45→16:30)
[2018-02-25 08:00] VITALS: BP 135/86
[2018-02-25] MEDS: PANTOPRAZOLE SODIUM 40 MG TABLET.DR PO SCH (09:43)
[2018-02-25] MEDS: AMIODARONE HCL 200 MG TABLET PO SCH (09:43)
[2018-02-25] MEDS: METOPROLOL TARTRATE 25 MG TAB PO SCH (09:43)
[2018-02-25] MEDS: SEVELAMER HCL 800 MG TABLET PO SCH ×3 (09:43→17:33)
[2018-02-25] MEDS: TRAMADOL HCL 50 MG TABLET PO PRN (09:45)
[2018-02-25 11:59] VITALS: BP 123/59
[2018-02-25] MEDS ORDERED: METO10TA41 PO (15:49)
[2018-02-25 15:54] VITALS: BP 124/73
== END 2018-02-25 18:00 | disposition home or self-care (01) | DRG 252 ==
LOC: EDH 09:19 → OBSVTOIN 10:45 → EDHIP 10:45 → 3DH 12:26
PROVIDERS: ADMIT Internal Medicine Nephrology; ATTEND Internal Medicine Nephrology
PROC: 02H633Z Insertion of Infusion Device into Right Atrium, Percutaneous Approach (ICD-10-PCS; 2018-02-21)
PROC: B2141ZZ Fluoroscopy of Right Heart using Low Osmolar Contrast (ICD-10-PCS; 2018-02-21)
PROC: B244ZZZ Ultrasonography of Right Heart (ICD-10-PCS; 2018-02-21)
PROC: 5A1D70Z Performance of Urinary Filtration, Intermittent, Less than 6 Hours Per Day (ICD-10-PCS; 2018-02-22)
PROC: 03L70ZZ Occlusion of Right Brachial Artery, Open Approach (ICD-10-PCS; principal; 2018-02-22 09:45)
PROC: 05LF0ZZ Occlusion of Left Cephalic Vein, Open Approach (ICD-10-PCS; 2018-02-22 09:45)
PROC: 5A1D70Z Performance of Urinary Filtration, Intermittent, Less than 6 Hours Per Day (ICD-10-PCS; 2018-02-24)
DX: T82.838A Hemorrhage due to vascular prosthetic devices, implants and grafts, initial encounter (principal); N18.6 End stage renal disease; E11.21 Type 2 diabetes mellitus with diabetic nephropathy; E11.22 Type 2 diabetes mellitus with diabetic chronic kidney disease; M32.9 Systemic lupus erythematosus, unspecified; I48.92 Unspecified atrial flutter; E66.01 Morbid (severe) obesity due to excess calories; I12.0 Hypertensive chronic kidney disease with stage 5 chronic kidney disease or end stage renal disease; I48.91 Unspecified atrial fibrillation; Z68.41 Body mass index [BMI] 40.0-44.9, adult; Z99.2 Dependence on renal dialysis; Z91.14 Patient's other noncompliance with medication regimen; I72.1 Aneurysm of artery of upper extremity; F32.9 Major depressive disorder, single episode, unspecified; Y83.9 Surgical procedure, unspecified as the cause of abnormal reaction of the patient, or of later complication, without mention of misadventure at the time of the procedure; Y92.89 Other specified places as the place of occurrence of the external cause; Z88.8 Allergy status to other drugs, medicaments and biological substances; Z83.3 Family history of diabetes mellitus; Z82.49 Family history of ischemic heart disease and other diseases of the circulatory system
CPT/HCPCS: 36415; 36558; 75820; 77001; 80048; 82948; 85025; 85027; 85610; 85730; 90935; 93931; 93971; A6453; C1750; J1644; J2175; J2270; J2440; J2550; J3010; J3490; J7030; Q9967

== ENCOUNTER 2018-02-27 01:59 | Emergency (ER) | payer MEDICARE ==
[~2018-02-27 01:59] MED LIST changes: +METO10TA41 PO
[2018-02-27 02:56] LABS: BASOPHILS % (AUTO) 0.9 % (0.0-5.0); EOSINOPHILS % (AUTO) 2.1 % (0.0-8.0); HEMATOCRIT 32.4 % (36-48); LYMPHOCYTES % (AUTO) 18.9 % (21.0-51.0); MEAN CORPUSCULAR HGB CONC 34.3 g/dL (32.0-36.0); MEAN CORPUSCULAR VOLUME 102.1 fL (79-99); MONOCYTES % (AUTO) 12.8 % (3.0-13.0); NEUTROPHILS % (AUTO) 65.3 % (40.0-77.0); NUCLEATED RED BLOOD CELLS 0.1 % (0.0-0.19); PLATELET COUNT (AUTO) 88 K/uL (130-400); RED BLOOD CELL COUNT(AUTO) 3.17 MIL/uL (4.00-5.50); RED CELL DISTRIBUTION WIDTH 17.7 % (11.0-15.5); WHITE BLOOD COUNT (AUTO) 4.5 K/uL (4.8-10.8)
== END 2018-02-27 04:24 | disposition home or self-care (01) ==
LOC: EDH 01:59
DX: T82.838A Hemorrhage due to vascular prosthetic devices, implants and grafts, initial encounter (principal); I12.0 Hypertensive chronic kidney disease with stage 5 chronic kidney disease or end stage renal disease; N18.6 End stage renal disease; M32.9 Systemic lupus erythematosus, unspecified; Z79.01 Long term (current) use of anticoagulants; Z88.8 Allergy status to other drugs, medicaments and biological substances; Z90.49 Acquired absence of other specified parts of digestive tract; Z98.890 Other specified postprocedural states
CPT/HCPCS: 36415; 85025

== ENCOUNTER 2018-03-08 14:02 | Emergency (ER) | payer MEDICARE ==
[2018-03-08 15:02] LABS: BASOPHILS % (AUTO) 0.9 % (0.0-5.0); EOSINOPHILS % (AUTO) 1.9 % (0.0-8.0); HEMATOCRIT 29.9 % (36-48); LYMPHOCYTES % (AUTO) 13.9 % (21.0-51.0); MEAN CORPUSCULAR HGB CONC 34.5 g/dL (32.0-36.0); MEAN CORPUSCULAR VOLUME 98.6 fL (79-99); MONOCYTES % (AUTO) 11.9 % (3.0-13.0); NEUTROPHILS % (AUTO) 71.4 % (40.0-77.0); PLATELET COUNT (AUTO) 128 K/uL (130-400); RED BLOOD CELL COUNT(AUTO) 3.03 MIL/uL (4.00-5.50)
[2018-03-08 15:10] LABS: INR 1.09 (0.85-1.15); PARTIAL THROMBOPLASTIN TIME 25.4 SEC (26.3-35.5); PROTHROMBIN TIME 11.4 SEC (9.6-11.6)
[2018-03-08] MEDS ORDERED: ASPIRIN 325 MG TABLET ONE (15:11)
[2018-03-08 15:19] LABS: CREATININE 4.3 mg/dL (0.5-1.5); POTASSIUM 3.7 mmol/L (3.5-5.1)
[2018-03-08 15:23] LABS: ALBUMIN 3.5 g/dL (3.5-5.0)
[2018-03-08 15:35] LABS: BILIRUBIN,TOTAL 3.1 mg/dL (0.2-1.0); TOTAL PROTEIN, SERUM 7.5 g/dL (6.0-8.3)
[2018-03-08] MEDS ORDERED: ALPRAZOLAM 1 MG TAB ONE (15:56)
== END 2018-03-08 20:20 | disposition home or self-care (01) ==
LOC: EDH 14:02
DX: L93.0 Discoid lupus erythematosus (principal); R07.9 Chest pain, unspecified; I12.0 Hypertensive chronic kidney disease with stage 5 chronic kidney disease or end stage renal disease; N18.6 End stage renal disease; Z99.2 Dependence on renal dialysis
CPT/HCPCS: 36415; 71045; 80053; 82550; 83690; 84484; 85025; 85610; 85651; 85730; 86140; 93005

== ENCOUNTER 2022-05-22 23:29 | Emergency (ER) | payer MEDICARE ==
[~2022-05-22] VITALS: Ht 162.6 cm; Wt 94.3 kg
[2022-05-23 00:45] LABS: BASOPHILS % (AUTO) 0.6 % (0.0-5.0); EOSINOPHILS % (AUTO) 1.4 % (0.0-8.0); HEMATOCRIT 28.3 % (36-48); LYMPHOCYTES % (AUTO) 24.4 % (21.0-51.0); MEAN CORPUSCULAR HEMOGLOBIN 33.2 pg (27.0-33.0); MEAN CORPUSCULAR HGB CONC 32.5 g/dL (32.0-36.0); MEAN CORPUSCULAR VOLUME 102.2 fL (79-99); MONOCYTES % (AUTO) 12.1 % (3.0-13.0); NEUTROPHILS % (AUTO) 61.3 % (40.0-77.0); PLATELET COUNT (AUTO) 72 K/uL (130-400); RED BLOOD CELL COUNT(AUTO) 2.77 MIL/uL (4.00-5.50); RED CELL DISTRIBUTION WIDTH 14.7 % (11.0-15.5); WHITE BLOOD COUNT (AUTO) 4.9 K/uL (4.8-10.8)
[2022-05-23 02:29] LABS: ALBUMIN 3.9 g/dL (3.5-5.0); BILIRUBIN,TOTAL 1.3 mg/dL (0.2-1.0); CREATININE 6.4 mg/dL (0.5-1.5); POTASSIUM 3.9 mmol/L (3.5-5.1); TOTAL PROTEIN, SERUM 7.6 g/dL (6.0-8.3)
[2022-05-23 02:39] VITALS: BP 138/97
[2022-05-23] MEDS ORDERED: HYDROCODONE/ACETAMINOPHEN 10/325 MG TAB PO ONE (03:00)
== END 2022-05-23 03:32 | disposition home or self-care (01) ==
LOC: EDH 23:29
DX: S00.83XA Contusion of other part of head, initial encounter (principal); R55 Syncope and collapse; I12.0 Hypertensive chronic kidney disease with stage 5 chronic kidney disease or end stage renal disease; N18.6 End stage renal disease; M25.511 Pain in right shoulder; M25.551 Pain in right hip; M25.531 Pain in right wrist; I48.91 Unspecified atrial fibrillation; Z88.1 Allergy status to other antibiotic agents; Z88.8 Allergy status to other drugs, medicaments and biological substances; Z79.01 Long term (current) use of anticoagulants; Z90.49 Acquired absence of other specified parts of digestive tract; W18.39XA Other fall on same level, initial encounter; Y93.89 Activity, other specified; Y92.89 Other specified places as the place of occurrence of the external cause; Y99.8 Other external cause status
CPT/HCPCS: 36415; 70450; 71101; 73030; 73502; 80053; 84484; 85025; 93005